=== PATIENT | female | born 1995 | race African-American/Black ===

== ENCOUNTER 2019-10-03 20:07 | Emergency (ER) | payer OTHER ==
[2019-10-03] MEDS ORDERED: Ibuprofen 800 MG TAB ONE (20:48)
[2019-10-06 11:41] LABS: SARS-CoV-2 MS2 Positive; SARS-CoV-2 N Gene Positive; SARS-CoV-2 S Gene Positive; SARS-CoV-2 orf1ab Positive
== END 2019-10-03 21:47 | disposition home or self-care (01) ==
LOC: NAV ERS 20:07
DX: U07.1 COVID-19 (principal)
CPT/HCPCS: 87635; 87804; 99283; U0003

== ENCOUNTER 2019-10-17 11:36 | Emergency (ER) | payer OTHER ==
[2019-10-18 14:40] LABS: SARS-CoV-2 MS2 Positive; SARS-CoV-2 N Gene Positive; SARS-CoV-2 S Gene Positive; SARS-CoV-2 orf1ab Positive
== END 2019-10-17 12:18 | disposition home or self-care (01) ==
LOC: NAV ERS 11:36
DX: U07.1 COVID-19 (principal)
CPT/HCPCS: 87635; 99283; U0003